=== PATIENT | male | born 1985 ===

== ENCOUNTER 2017-05-06 11:59 | Emergency (ER) | payer MEDICAID, OTHER ==
[2017-05-06 13:11] VITALS: BP 103/64
--- NOTE | 2017-05-06 14:26 | UC ---
Truncal Trauma HPI - HPI Summary HPI Summary: 31 yo male with right anterior chest pain x 1 week ? due to twisting torso initially pain more severe now no pain unless he coughs or sneezes or lays on right side some cough no f/c no SOB no abd pain - History Of Current Complaint Chief Complaint: UCGeneralIllness Stated Complaint: PAIN IN RIB AREA Time Seen by Provider: 05/06/17 13:56 Hx Obtained From: Patient Onset/Duration: Sudden Onset, Lasting Days Onset Of Pain: Immediate Severity Initially: Moderate Severity Currently: None Pain Intensity: 0 - see HPI summary Pain Scale Used: 0-10 Numeric Mechanism Of Injury: Unknown Aggravating Factor(s): Cough Alleviating factor(s): Rest Associated Signs And Symptoms: Positive: Chest Pain - Allergies/Home Medications Allergies/Adverse Reactions: Allergies Allergy/AdvReac Type Severity Reaction Status Date / Time Environmental Allergy Itching Uncoded 05/06/17 13:04 Home Medications: Home Medications NK [No Home Medications Reported] 05/06/17 [History Confirmed 05/06/17] PMH/Surg Hx/FS Hx/Imm Hx Previously Healthy: Yes - Surgical History Surgical History: Yes Surgery Procedure, Year, and Place: L wrist surgery 2005. L ankle surgery 2009 - Social History Alcohol Use: Rare Substance Use Type: None Smoking Status (MU): Never Smoked Tobacco Review of Systems Constitutional: Negative Skin: Negative Eyes: Negative ENT: Negative Respiratory: Negative Cardiovascular: Chest Pain Gastrointestinal: Negative Genitourinary: Negative Motor: Negative Neurovascular: Negative Musculoskeletal: Negative Neurological: Negative Psychological: Negative Is Patient Immunocompromised?: No All Other Systems Reviewed And Are Negative: Yes Physical Exam Triage Information Reviewed: Yes Appearance: Well-Appearing, No Pain Distress, Well-Nourished Vital Signs: Initial Vital Signs Temp 98.8 F 05/06/17 13:05 Pulse 51 05/06/17 13:05 Resp 18 05/06/17 13:05 BP 103/64 05/06/17 13:05 Pulse Ox 100 05/06/17 13:05 Vital Signs Reviewed: Yes Eyes: Positive: Conjunctiva Clear ENT: Positive: Hearing grossly normal. Negative: Nasal congestion, Nasal drainage, Trismus, Muffled voice, Hoarse voice Neck: Positive: Supple, Nontender, No Lymphadenopathy Respiratory: Positive: Lungs clear, Normal breath sounds, No respiratory distress, No accessory muscle use. Negative: Chest non-tender Cardiovascular: Positive: RRR, No Murmur Abdomen Description: Positive: Nontender, No Organomegaly Musculoskeletal: Positive: ROM Intact, No Edema Neurological: Positive: Muscle Tone Normal Psychological Exam: Normal Skin Exam: Normal Diagnostics - Radiology No standard instances Xray Interpretation: No Acute Changes Radiology Interpretation Completed By: Radiologist Truncal Trauma Course/Dx - Differential Dx/Diagnosis Provider Diagnoses: chest wall pain Discharge - Discharge Plan Condition: Stable Disposition: HOME Patient Education Materials: Chest Wall Pain (ED) Referrals: [facility] [place] PHYSICIAN REFERRAL [Outside] - 2 Weeks (if not better) Additional Instructions: ADVIL OR ALEVE IF NEEDED FOR PAIN RECHECK FOR NEW OR WORSENING SYMPTOMS OR IF NOT BETTER IN 2 WEEKS Images Front/Back of Body, Lg ([place]): 1 - tender here/pain with rib springing
--- NOTE | 2017-05-06 14:29 | RAD ---
Indication: RIGHT anterior medial chest wall pain. Twisting injury a few days ago. Comparison: No relevant prior exams available on the [facility] PACS for comparison. Technique: Dual energy PA chest and 4 view dedicated RIGHT rib series. Report: Skin marker noted at the proximal level of the RIGHT seventh rib indicating the site of clinical concern. No rib fracture, pleural effusion, or pneumothorax evident. Clear lungs. The heart, pulmonary vasculature, and mediastinal contours are unremarkable. IMPRESSION: Negative for RIGHT rib fracture or pneumothorax. Negative exam.
== END 2017-05-06 15:25 | disposition home or self-care (01) ==
LOC: UCEAST 11:59
DX: R07.89 Other chest pain (principal)
CPT/HCPCS: 99201; G0463